=== PATIENT | male | born 1990 | race Caucasian/White ===

== ENCOUNTER 2022-09-01 16:57 | Inpatient (IN) | payer OTHER ==
[2022-09-01 17:24] VITALS: BMI 19.8
[2022-09-01] MEDS ORDERED: MAGNESIUM HYDROX 2400MG/30ML ORAL SUSPENSION 30 ML CUP PO PRN (20:19)
[2022-09-01] MEDS ORDERED: NALOXONE HCL (KLOXXADO) 8 MG SPRAY NS PRN (20:19)
[2022-09-01] MEDS ORDERED: MAG HYDROX/AL HYDROX/SIMETH 30 ML UNIT-DOSE CUP PO PRN (20:19)
[2022-09-01] MEDS ORDERED: IBUPROFEN 600 MG TABLET (FP) PO PRN (20:19)
[2022-09-01] MEDS ORDERED: BENZONATATE 200 MG CAPSULE PO PRN (20:19)
[2022-09-01] MEDS ORDERED: guaiFENesin 600 MG TABLET.ER (FP) PO PRN (20:19)
[2022-09-01] MEDS ORDERED: P-EPHED 60MG/TRIPROLIDI 2.5MG TABLET PO PRN (20:19)
[2022-09-01] MEDS ORDERED: DICYCLOMINE HCL 10 MG CAPSULE PO PRN (20:19)
[2022-09-01] MEDS ORDERED: BISMUTH SUBSALICYLATE 524 MG/30 ML PO PRN (20:19)
[2022-09-01] MEDS ORDERED: hydrOXYzine PAMOATE 25 MG CAPSULE (FP) PO PRN (20:19)
[2022-09-01] MEDS ORDERED: ACETAMINOPHEN 325 MG TABLET (FP) PO PRN (20:19)
[2022-09-01] MEDS ORDERED: BENZOCAINE/MENTHOL (CHLORASEPTIC ) LOZENGE MM PRN (20:19)
[2022-09-01] MEDS ORDERED: ONDANSETRON *ODT* 4 MG TABLET SL PRN (20:19)
[2022-09-01] MEDS ORDERED: LOPERAMIDE HCL 2 MG CAPSULE PO PRN (20:19)
[2022-09-01] MEDS ORDERED: NALOXONE HCL 0.4 MG/ML VIAL IM PRN (20:19)
[2022-09-01] MEDS ORDERED: IBUPROFEN 400 MG TABLET (FP) PO PRN (20:19)
[2022-09-01] MEDS ORDERED: POLYETHYLENE GLYCOL (HEALTHYLAX) 3350 17 GM PACKET PO PRN (20:19)
[2022-09-01] MEDS ORDERED: NICOTINE POLACRILEX 2 MG GUM BUC PRN (20:19)
[2022-09-01] MEDS: METHOCARBAMOL 500 MG TABLET PO PRN (21:35)
[2022-09-01] MEDS ORDERED: MELATONIN 5 MG TABLETS PO SCH (22:00)
[2022-09-01] MEDS ORDERED: THIAMINE HCL 100 MG TABLET (FP) PO SCH (22:00)
[2022-09-01] MEDS ORDERED: LORazepam 2 MG/ML SDV VIAL IM ONE (23:50)
[2022-09-02] MEDS: METHOCARBAMOL 500 MG TABLET PO PRN (04:29)
[2022-09-02] MEDS ORDERED: diazePAM 5 MG TABLET PO PRN (09:49)
[2022-09-02] MEDS ORDERED: PRENATAL VITAMINS W/ FOLIC ACID TABLET (FP) PO SCH (10:00)
[2022-09-02] MEDS ORDERED: FOLIC ACID 1 MG TABLET (FP) PO SCH (10:00)
[2022-09-02] MEDS ORDERED: NICOTINE 7 MG/24 HOURS TOPICAL PATCH TD SCH (10:00)
[2022-09-02] MEDS ORDERED: levETIRAcetam 500 MG TABLET (FP) PO SCH (10:00)
[2022-09-02] MEDS ORDERED: diazePAM 5 MG TABLET PO SCH (11:00)
[2022-09-02] MEDS ORDERED: NICOTINE 10 MG CARTRIDGE (INHALER) IH SCH (13:00)
[2022-09-02 13:44] VITALS: RESP 18
[2022-09-02 16:20] VITALS: BP 151/94; PULSE 90; TEMP 97.8
[2022-09-04] MEDS ORDERED: diazePAM 5 MG TABLET PO SCH (06:00)
[2022-09-05] MEDS ORDERED: diazePAM 5 MG TABLET PO SCH (06:00)
[2022-09-06] MEDS ORDERED: diazePAM 5 MG TABLET PO ONE (06:00)
== END 2022-09-02 17:27 | disposition left against medical advice (07) | DRG 770 ==
LOC: YASAS 16:57 → Y3N 21:11
PROVIDERS: ADMIT Allergy & Immunology; ATTEND Surgery
PROC: HZ2ZZZZ Detoxification Services for Substance Abuse Treatment (ICD-10-PCS; principal; 2022-09-01)
DX: F10.230 Alcohol dependence with withdrawal, uncomplicated (principal); F14.20 Cocaine dependence, uncomplicated; F12.20 Cannabis dependence, uncomplicated; F17.210 Nicotine dependence, cigarettes, uncomplicated; R56.1 Post traumatic seizures; Z87.820 Personal history of traumatic brain injury
CPT/HCPCS: 82962; C9803-CS; U0003; U0005

== ENCOUNTER 2022-09-02 00:21 | Emergency (ER) | payer OTHER ==
[2022-09-02 00:35] VITALS: RESP 18; TEMP 97.7; BMI 19.8
[2022-09-02 01:28] LABS: POTASSIUM 4.5 mmol/L (3.5-5.1)
[2022-09-02 01:30] LABS: BLOOD UREA NITROGEN 9.2 mg/dL (7-18); CALCIUM 9.8 mg/dL (8.5-10.1)
[2022-09-02 01:33] LABS: CREATININE 0.9 mg/dL (0.55-1.3)
[2022-09-02 01:34] LABS: BASO % 1.2 % (0-2.0); EOS % 0.6 % (0-4.5); HEMATOCRIT 32.3 % (35.4-49); HEMOGLOBIN 10.8 GM/dL (11.7-16.9); LYMPH % 13.5 % (8-40); MCH 35.6 pg (25.7-33.7); MCHC 33.4 g/dl (32.0-35.9); MEAN CELL VOLUME 106.6 fl (80-96); MEAN PLT VOLUME 7.7 fl (7.5-11.1); MONO % 6.2 % (3.8-10.2); NEUT % 78.5 % (42.8-82.8); PLATELET COUNT 104 10^3/uL (134-434); RBC 3.03 M/mm3 (4.00-5.60); WHITE BLOOD COUNT 4.1 K/mm3 (4.0-10.0)
[2022-09-02 01:35] LABS: BILIRUBIN,TOTAL 0.3 mg/dL (0.2-1); TOT PROT 8.1 g/dl (6.4-8.2)
[2022-09-02] MEDS ORDERED: levETIRAcetam 500 MG/5 ML INJECTION VIAL IVPB ONE ×2 (02:08→02:09)
[2022-09-02 03:18] VITALS: BP 133/62; PULSE 75
[2022-09-02 05:58] LABS: ANISOCYTOSIS 1+; MACROCYTOSIS 0; ROULEAU 1+
== END 2022-09-02 03:17 | disposition home or self-care (01) ==
LOC: JER 00:21
PROC: 3E033GC Introduction of Other Therapeutic Substance into Peripheral Vein, Percutaneous Approach (ICD-10-PCS; principal; 2022-09-02)
DX: R56.9 Unspecified convulsions (principal); S00.501A Unspecified superficial injury of lip, initial encounter
CPT/HCPCS: 36415; 70450-TC; 72125-TC; 80053; 85025; 93005; 93010; 96375; 99285-25

== ENCOUNTER 2022-09-15 12:47 | Inpatient (IN) | payer OTHER ==
[2022-09-15 13:58] VITALS: BMI 18.1
[2022-09-15] MEDS ORDERED: BISMUTH SUBSALICYLATE 524 MG/30 ML PO PRN (16:05)
[2022-09-15] MEDS ORDERED: MAGNESIUM HYDROX 2400MG/30ML ORAL SUSPENSION 30 ML CUP PO PRN (16:05)
[2022-09-15] MEDS ORDERED: MAG HYDROX/AL HYDROX/SIMETH 30 ML UNIT-DOSE CUP PO PRN (16:05)
[2022-09-15] MEDS ORDERED: BENZOCAINE/MENTHOL (CHLORASEPTIC ) LOZENGE MM PRN (16:05)
[2022-09-15] MEDS ORDERED: LOPERAMIDE HCL 2 MG CAPSULE PO PRN (16:05)
[2022-09-15] MEDS ORDERED: ACETAMINOPHEN 325 MG TABLET (FP) PO PRN (16:05)
[2022-09-15] MEDS ORDERED: hydrOXYzine PAMOATE 25 MG CAPSULE (FP) PO PRN (16:05)
[2022-09-15] MEDS ORDERED: guaiFENesin 600 MG TABLET.ER (FP) PO PRN (16:05)
[2022-09-15] MEDS ORDERED: NALOXONE HCL (KLOXXADO) 8 MG SPRAY NS PRN (16:05)
[2022-09-15] MEDS ORDERED: BENZONATATE 200 MG CAPSULE PO PRN (16:05)
[2022-09-15] MEDS ORDERED: NALOXONE HCL 0.4 MG/ML VIAL IM PRN (16:05)
[2022-09-15] MEDS ORDERED: DICYCLOMINE HCL 10 MG CAPSULE PO PRN (16:05)
[2022-09-15] MEDS ORDERED: POLYETHYLENE GLYCOL (HEALTHYLAX) 3350 17 GM PACKET PO PRN (16:05)
[2022-09-15] MEDS ORDERED: IBUPROFEN 600 MG TABLET (FP) PO PRN (16:05)
[2022-09-15] MEDS ORDERED: METHOCARBAMOL 500 MG TABLET PO PRN (16:05)
[2022-09-15] MEDS ORDERED: IBUPROFEN 400 MG TABLET (FP) PO PRN (16:05)
[2022-09-15] MEDS ORDERED: ONDANSETRON *ODT* 4 MG TABLET SL PRN (16:05)
[2022-09-15] MEDS ORDERED: LORazepam 1 MG TABLET PO PRN (16:05)
[2022-09-15] MEDS ORDERED: NICOTINE 14 MG/24 HOURS TOPICAL PATCH TD ONE (16:54)
[2022-09-15] MEDS ORDERED: PRENATAL VITAMINS W/ FOLIC ACID TABLET (FP) PO ONE (16:54)
[2022-09-15] MEDS ORDERED: levETIRAcetam 500 MG TABLET (FP) PO ONE (16:54)
[2022-09-15] MEDS: levETIRAcetam 500 MG TABLET (FP) PO SCH (17:02)
[2022-09-15] MEDS: NICOTINE 14 MG/24 HOURS TOPICAL PATCH TD SCH (17:02)
[2022-09-15] MEDS: PRENATAL VITAMINS W/ FOLIC ACID TABLET (FP) PO SCH (17:02)
[2022-09-15] MEDS: NICOTINE 10 MG CARTRIDGE (INHALER) IH PRN ×2 (18:11→22:26)
[2022-09-15] MEDS ORDERED: MELATONIN 5 MG TABLETS PO SCH (22:00)
[2022-09-15] MEDS: THIAMINE HCL 100 MG TABLET (FP) PO SCH (22:19)
[2022-09-15] MEDS: LORazepam 2 MG TABLET PO SCH (22:19)
[2022-09-16] MEDS: LORazepam 2 MG TABLET PO SCH ×4 (06:00→22:26)
[2022-09-16] MEDS: PRENATAL VITAMINS W/ FOLIC ACID TABLET (FP) PO SCH (10:32)
[2022-09-16] MEDS: NICOTINE 14 MG/24 HOURS TOPICAL PATCH TD SCH (10:33)
[2022-09-16] MEDS: levETIRAcetam 500 MG TABLET (FP) PO SCH (10:33)
[2022-09-16] MEDS: NICOTINE 10 MG CARTRIDGE (INHALER) IH PRN ×3 (10:52→19:56)
[2022-09-16 11:26] LABS: HEMATOCRIT 34.6 % (35.4-49); HEMOGLOBIN 11.6 GM/dL (11.7-16.9); MCHC 33.5 g/dl (32.0-35.9); MEAN CELL VOLUME 107.3 fl (80-96); MEAN PLT VOLUME 7.8 fl (7.5-11.1); PLATELET COUNT 165 10^3/uL (134-434); RBC 3.22 M/mm3 (4.00-5.60); RDW 13.5 % (11.9-15.9); WHITE BLOOD COUNT 3.5 K/mm3 (4.0-10.0)
[2022-09-16 11:34] LABS: POTASSIUM 3.7 mmol/L (3.5-5.1)
[2022-09-16 11:49] LABS: BLOOD UREA NITROGEN 9.3 mg/dL (7-18); CALCIUM 9.9 mg/dL (8.5-10.1)
[2022-09-16 11:52] LABS: CREATININE 0.9 mg/dL (0.55-1.3)
[2022-09-16 11:54] LABS: TOT PROT 8.1 g/dl (6.4-8.2)
[2022-09-16 11:55] LABS: BILIRUBIN,TOTAL 0.6 mg/dL (0.2-1)
[2022-09-16] MEDS: THIAMINE HCL 100 MG TABLET (FP) PO SCH (22:26)
[2022-09-16] MEDS: SUVOREXANT 10 MG TABLET PO PRN (22:27)
[2022-09-17] MEDS: LORazepam 1 MG TABLET PO SCH ×4 (05:50→22:26)
[2022-09-17] MEDS: NICOTINE 10 MG CARTRIDGE (INHALER) IH PRN ×4 (05:55→22:29)
[2022-09-17] MEDS: levETIRAcetam 500 MG TABLET (FP) PO SCH (10:17)
[2022-09-17] MEDS: PRENATAL VITAMINS W/ FOLIC ACID TABLET (FP) PO SCH (10:17)
[2022-09-17] MEDS: LACTULOSE 20 GM/30 ML UDC (FOR ORAL USE ONLY) PO SCH ×4 (10:18→22:24)
[2022-09-17] MEDS: NICOTINE 14 MG/24 HOURS TOPICAL PATCH TD SCH (10:21)
[2022-09-17] MEDS: SUVOREXANT 10 MG TABLET PO PRN (22:23)
[2022-09-17] MEDS: THIAMINE HCL 100 MG TABLET (FP) PO SCH (22:24)
[2022-09-18] MEDS ORDERED: LORazepam 0.5 MG TABLET PO PRN
[2022-09-18] MEDS: LORazepam 0.5 MG TABLET PO SCH ×2 (05:55→10:45)
[2022-09-18] MEDS: NICOTINE 10 MG CARTRIDGE (INHALER) IH PRN ×2 (05:56→10:23)
[2022-09-18 09:36] VITALS: BP 135/89; PULSE 82; RESP 17; TEMP 97.5
[2022-09-18] MEDS: PRENATAL VITAMINS W/ FOLIC ACID TABLET (FP) PO SCH (09:54)
[2022-09-18] MEDS: levETIRAcetam 500 MG TABLET (FP) PO SCH (09:55)
[2022-09-18] MEDS: LACTULOSE 20 GM/30 ML UDC (FOR ORAL USE ONLY) PO SCH (09:55)
[2022-09-18] MEDS: NICOTINE 14 MG/24 HOURS TOPICAL PATCH TD SCH (09:56)
[2022-09-19] MEDS ORDERED: LORazepam 0.5 MG TABLET PO ONE (05:00)
== END 2022-09-18 10:50 | disposition home or self-care (01) | DRG 775 ==
LOC: YASAS 12:47 → Y6N 16:19
PROVIDERS: ADMIT Allergy & Immunology; ATTEND Surgery
PROC: HZ2ZZZZ Detoxification Services for Substance Abuse Treatment (ICD-10-PCS; principal; 2022-09-15)
DX: F10.230 Alcohol dependence with withdrawal, uncomplicated (principal); F12.20 Cannabis dependence, uncomplicated; F17.210 Nicotine dependence, cigarettes, uncomplicated; F31.9 Bipolar disorder, unspecified; F10.282 Alcohol dependence with alcohol-induced sleep disorder; F90.9 Attention-deficit hyperactivity disorder, unspecified type; R56.1 Post traumatic seizures; R79.89 Other specified abnormal findings of blood chemistry; Z74.8 Other problems related to care provider dependency; Z86.59 Personal history of other mental and behavioral disorders
CPT/HCPCS: 36415; 80053; 82140; 84450; 85027; 86780; 87635

== ENCOUNTER 2023-03-02 13:27 | Inpatient (IN) | payer OTHER ==
[2023-03-02] MEDS ORDERED: METHOCARBAMOL 500 MG TABLET PO PRN (15:46)
[2023-03-02] MEDS ORDERED: ONDANSETRON *ODT* 4 MG TABLET SL PRN (15:46)
[2023-03-02] MEDS ORDERED: BENZONATATE 200 MG CAPSULE PO PRN (15:46)
[2023-03-02] MEDS ORDERED: IBUPROFEN 600 MG TABLET (FP) PO PRN (15:46)
[2023-03-02] MEDS ORDERED: MAGNESIUM HYDROX 2400MG/30ML ORAL SUSPENSION 30 ML CUP PO PRN (15:46)
[2023-03-02] MEDS ORDERED: BISMUTH SUBSALICYLATE 524 MG/30 ML PO PRN (15:46)
[2023-03-02] MEDS ORDERED: NALOXONE HCL (KLOXXADO) 8 MG SPRAY NS PRN (15:46)
[2023-03-02] MEDS ORDERED: DICYCLOMINE HCL 10 MG CAPSULE PO PRN (15:46)
[2023-03-02] MEDS ORDERED: NALOXONE HCL 0.4 MG/ML VIAL IM PRN (15:46)
[2023-03-02] MEDS ORDERED: BENZOCAINE/MENTHOL (CHLORASEPTIC ) LOZENGE MM PRN (15:46)
[2023-03-02] MEDS ORDERED: IBUPROFEN 400 MG TABLET (FP) PO PRN (15:46)
[2023-03-02] MEDS ORDERED: LOPERAMIDE HCL 2 MG CAPSULE PO PRN (15:46)
[2023-03-02] MEDS ORDERED: ACETAMINOPHEN 325 MG TABLET (FP) PO PRN (15:46)
[2023-03-02] MEDS ORDERED: MAG HYDROX/AL HYDROX/SIMETH 30 ML UNIT-DOSE CUP PO PRN (15:46)
[2023-03-02] MEDS ORDERED: guaiFENesin 600 MG TABLET.ER (FP) PO PRN (15:46)
[2023-03-02] MEDS ORDERED: POLYETHYLENE GLYCOL (HEALTHYLAX) 3350 17 GM PACKET PO PRN (15:46)
[2023-03-02] MEDS: NICOTINE 7 MG/24 HOURS TOPICAL PATCH TD SCH (17:28)
[2023-03-02] MEDS: PRENATAL VITAMINS W/ FOLIC ACID TABLET (FP) PO SCH (17:31)
[2023-03-02] MEDS ORDERED: MELATONIN 5 MG TABLETS PO SCH (22:00)
[2023-03-02] MEDS: hydrOXYzine PAMOATE 25 MG CAPSULE (FP) PO PRN (22:22)
[2023-03-02] MEDS: THIAMINE HCL 100 MG TABLET (FP) PO SCH (22:23)
[2023-03-03] MEDS ORDERED: LORazepam 1 MG TABLET PO PRN (08:36)
[2023-03-03] MEDS ORDERED: LORazepam 2 MG/ML SDV VIAL IM ONE (09:17)
[2023-03-03] MEDS: PRENATAL VITAMINS W/ FOLIC ACID TABLET (FP) PO SCH (09:55)
[2023-03-03] MEDS: NICOTINE 7 MG/24 HOURS TOPICAL PATCH TD SCH (09:55)
[2023-03-03] MEDS: levETIRAcetam 500 MG TABLET (FP) PO SCH (09:55)
[2023-03-03] MEDS: LORazepam 2 MG TABLET PO SCH ×2 (17:20→22:34)
[2023-03-03] MEDS: hydrOXYzine PAMOATE 25 MG CAPSULE (FP) PO PRN (17:22)
[2023-03-03] MEDS: THIAMINE HCL 100 MG TABLET (FP) PO SCH (22:34)
[2023-03-04] MEDS: LORazepam 2 MG TABLET PO SCH ×4 (06:00→22:06)
[2023-03-04] MEDS: PRENATAL VITAMINS W/ FOLIC ACID TABLET (FP) PO SCH (10:11)
[2023-03-04] MEDS: levETIRAcetam 500 MG TABLET (FP) PO SCH (10:11)
[2023-03-04] MEDS: NICOTINE 7 MG/24 HOURS TOPICAL PATCH TD SCH (10:12)
[2023-03-04 14:59] LABS: HEMATOCRIT 40.6 % (35.4-49); HEMOGLOBIN 13.8 GM/dL (11.7-16.9); MCH 36.4 pg (25.7-33.7); MEAN CELL VOLUME 107.1 fl (80-96); MEAN PLT VOLUME 7.2 fl (7.5-11.1); PLATELET COUNT 251 10^3/uL (134-434); RBC 3.79 M/mm3 (4.00-5.60); RDW 15.6 % (11.9-15.9); WHITE BLOOD COUNT 4.4 K/mm3 (4.0-10.0)
[2023-03-04 15:45] LABS: POTASSIUM 3.7 mmol/L (3.5-5.1)
[2023-03-04 15:51] LABS: ALBUMIN 4.4 g/dl (3.4-5.0); CALCIUM 10.1 mg/dL (8.5-10.1)
[2023-03-04 15:52] LABS: BLOOD UREA NITROGEN 9.9 mg/dL (7-18)
[2023-03-04 15:56] LABS: BILIRUBIN,TOTAL 0.7 mg/dL (0.2-1)
[2023-03-04] MEDS: THIAMINE HCL 100 MG TABLET (FP) PO SCH (22:06)
[2023-03-05] MEDS: LORazepam 1 MG TABLET PO SCH ×2 (05:17→10:20)
[2023-03-05] MEDS: levETIRAcetam 500 MG TABLET (FP) PO SCH (10:20)
[2023-03-05] MEDS: PRENATAL VITAMINS W/ FOLIC ACID TABLET (FP) PO SCH (10:20)
[2023-03-05] MEDS: NICOTINE 7 MG/24 HOURS TOPICAL PATCH TD SCH (10:22)
[2023-03-05] MEDS ORDERED: LACTULOSE 20 GM/30 ML UDC (FOR ORAL USE ONLY) PO SCH (14:00)
[2023-03-05 17:33] VITALS: BP 141/70; PULSE 16; RESP 98; TEMP 97.3
[2023-03-06] MEDS ORDERED: LORazepam 0.5 MG TABLET PO PRN
[2023-03-06] MEDS ORDERED: LORazepam 0.5 MG TABLET PO SCH (05:00)
[2023-03-07] MEDS ORDERED: LORazepam 0.5 MG TABLET PO ONE (05:00)
== END 2023-03-05 16:45 | disposition left against medical advice (07) | DRG 770 ==
LOC: YASAS 13:27 → Y6N 16:50
PROVIDERS: ADMIT Allergy & Immunology; ATTEND Surgery
PROC: HZ2ZZZZ Detoxification Services for Substance Abuse Treatment (ICD-10-PCS; principal; 2023-03-02)
DX: F10.230 Alcohol dependence with withdrawal, uncomplicated (principal); F12.20 Cannabis dependence, uncomplicated; F17.210 Nicotine dependence, cigarettes, uncomplicated; F19.282 Other psychoactive substance dependence with psychoactive substance-induced sleep disorder; F90.9 Attention-deficit hyperactivity disorder, unspecified type; E72.20 Disorder of urea cycle metabolism, unspecified; G40.909 Epilepsy, unspecified, not intractable, without status epilepticus; R74.8 Abnormal levels of other serum enzymes; R74.01 Elevation of levels of liver transaminase levels
CPT/HCPCS: 36415; 80053; 82140; 85027; 86780; 87635

== ENCOUNTER 2023-03-24 23:26 | Inpatient (IN) | payer OTHER ==
[2023-03-25 01:51] LABS: EOS % 0.6 % (0-4.5); HEMOGLOBIN 11.6 GM/dL (11.7-16.9); LYMPH % 18.5 % (8-40); MCH 35.6 pg (25.7-33.7); MCHC 33.2 g/dl (32.0-35.9); MEAN CELL VOLUME 107.2 fl (80-96); MEAN PLT VOLUME 6.6 fl (7.5-11.1); MONO % 8.4 % (3.8-10.2); NEUT % 71.5 % (42.8-82.8); PLATELET COUNT 181 10^3/uL (134-434); RBC 3.26 M/mm3 (4.00-5.60); RDW 14.8 % (11.9-15.9); WHITE BLOOD COUNT 5.7 K/mm3 (4.0-10.0)
[2023-03-25 02:10] LABS: POTASSIUM 4.1 mmol/L (3.5-5.1); SODIUM 135 mmol/L (136-145)
[2023-03-25 02:12] LABS: CALCIUM 8.9 mg/dL (8.5-10.1); CO2 30 mmol/L (21-32); GLUCOSE,RANDOM 93 mg/dL (74-106)
[2023-03-25 02:13] LABS: ALBUMIN 3.5 g/dl (3.4-5.0)
[2023-03-25 02:15] LABS: SGPT/ALT 56 U/L (13-61)
[2023-03-25 02:16] LABS: CREATININE 0.9 mg/dL (0.55-1.3); SGOT/AST 64 U/L (15-37)
[2023-03-25 02:17] LABS: BILIRUBIN,TOTAL 0.2 mg/dL (0.2-1); TOT PROT 7.4 g/dl (6.4-8.2)
[2023-03-25 02:18] LABS: ALK PHOS 120 U/L (45-117)
[2023-03-25] MEDS ORDERED: levETIRAcetam 500 MG/5 ML INJECTION VIAL IVPB ONE (02:22)
[2023-03-25 02:24] LABS: ANION GAP 4 mmol/L (4-13); CHLORIDE 102 mmol/L (98-107)
[2023-03-25] MEDS: levETIRAcetam 500 MG/5 ML INJECTION VIAL IVPB ONE (02:34)
[2023-03-25] MEDS ORDERED: LORazepam 1 MG TABLET PO PRN (04:49)
[2023-03-25] MEDS ORDERED: LORazepam 1 MG TABLET ONE ×2 (05:39→12:09)
[2023-03-25] MEDS: LORazepam 1 MG TABLET PO SCH (05:41)
[2023-03-25 06:07] LABS: ANISOCYTOSIS 1+; MACROCYTOSIS 1+; OVALOCYTE 1+
[2023-03-25 06:40] LABS: HEMATOCRIT 35.1 % (35.4-49); HEMOGLOBIN 11.8 GM/dL (11.7-16.9); MCH 35.8 pg (25.7-33.7); MCHC 33.5 g/dl (32.0-35.9); MEAN CELL VOLUME 106.8 fl (80-96); MEAN PLT VOLUME 7.1 fl (7.5-11.1); PLATELET COUNT 178 10^3/uL (134-434); RBC 3.28 M/mm3 (4.00-5.60); RDW 14.7 % (11.9-15.9)
[2023-03-25 07:00] LABS: POTASSIUM 3.7 mmol/L (3.5-5.1)
[2023-03-25 07:05] LABS: ALBUMIN 3.6 g/dl (3.4-5.0); BLOOD UREA NITROGEN 9.6 mg/dL (7-18)
[2023-03-25 07:06] LABS: INR 0.99 (0.83-1.09); MAGNESIUM 1.6 mg/dL (1.8-2.4); PROTHROMBIN TIME (PATIENT) 11.5 SEC (9.7-13.0)
[2023-03-25 07:08] LABS: CREATININE 0.9 mg/dL (0.55-1.3); PHOSPHOROUS 4.3 mg/dL (2.5-4.9)
[2023-03-25 07:09] LABS: TOT PROT 7.6 g/dl (6.4-8.2)
[2023-03-25 07:10] LABS: BILIRUBIN,TOTAL 0.3 mg/dL (0.2-1)
[2023-03-25 07:59] LABS: HIV INTERPRETATION NEGATIVE (NEGATIVE)
[2023-03-25] MEDS: FOLIC ACID 1 MG TABLET (FP) PO SCH (08:37)
[2023-03-25] MEDS: NICOTINE 14 MG/24 HOURS TOPICAL PATCH TD SCH (08:38)
[2023-03-25] MEDS: THIAMINE HCL 200 MG/2 ML VIAL IVPB SCH (08:38)
[2023-03-25] MEDS: ENOXAPARIN NA (PORCINE) 40 MG/0.4 ML DISP.SYRIN SQ SCH (09:15)
[2023-03-25] MEDS ORDERED: levETIRAcetam 500 MG TABLET (FP) PO SCH (10:00)
[2023-03-25 15:37] LABS: URINE APPEARANCE CLEAR; URINE BILIRUBIN NEGATIVE (NEGATIVE); URINE COLOR YELLOW; URINE GLUCOSE (UA) NEGATIVE (NEGATIVE); URINE KETONE NEGATIVE (NEGATIVE); URINE LEUK ESTERASE NEGATIVE (NEGATIVE); URINE NITRITE NEGATIVE (NEGATIVE); URINE PROTEIN TRACE (NEGATIVE); URINE UROBILINOGEN 0.2 mg/dL (0.2-1.0)
[2023-03-25 15:58] VITALS: BMI 19.5
[2023-03-26] MEDS: LORazepam 1 MG TABLET PO SCH (05:12)
[2023-03-26 14:23] VITALS: BP 137/98; PULSE 107; RESP 20; TEMP 97.4
[2023-03-27] MEDS ORDERED: LORazepam 0.5 MG TABLET PO PRN
[2023-03-27] MEDS ORDERED: LORazepam 0.5 MG TABLET PO SCH (05:00)
[2023-03-28] MEDS ORDERED: LORazepam 0.5 MG TABLET PO ONE (05:00)
== END 2023-03-26 18:04 | disposition home or self-care (01) | DRG 53 ==
LOC: JER 23:26 → JERBED 03-25 03:10 → OBSVTOIN 03-25 05:22 → J7W 03-25 15:34
PROVIDERS: ADMIT Internal Medicine; ATTEND Internal Medicine
PROC: HZ2ZZZZ Detoxification Services for Substance Abuse Treatment (ICD-10-PCS; principal; 2023-03-24)
DX: G40.909 Epilepsy, unspecified, not intractable, without status epilepticus (principal); F20.9 Schizophrenia, unspecified; F90.9 Attention-deficit hyperactivity disorder, unspecified type; F10.239 Alcohol dependence with withdrawal, unspecified; F31.89 Other bipolar disorder; D64.9 Anemia, unspecified; F12.20 Cannabis dependence, uncomplicated; F41.8 Other specified anxiety disorders; Z59.00 Homelessness unspecified
CPT/HCPCS: 0241U-QW; 36415; 70450-TC; 80053; 80177; 80307; 81003; 83735; 84100; 85025; 85027; 85610; 87389; 93005; 93010; 99285-25; G0378